=== PATIENT | male | born 1990 | race Caucasian/White ===

== ENCOUNTER 2017-04-29 06:04 | Emergency (ER) | payer MEDICAID, OTHER ==
[~2017-04-29] VITALS: Ht 180.3 cm; Wt 77.3 kg
[~2017-04-29 06:04] MED LIST: PARO-37 PO; QUET200T PO
[2017-04-29] MEDS ORDERED: KETOROLAC TROMETHAMINE 30 MG/ML VIAL IVP ONE (06:30)
[2017-04-29] MEDS ORDERED: AMPICILLIN SODIUM/SULBACTAM NA 3 GM in SODIUM CHLORIDE 0.9% 100 ML IV ONE (06:30)
[2017-04-29] MEDS ORDERED: MORPHINE SULFATE 4 MG/ML SYRINGE IVP ONE (06:30)
[2017-04-29 08:02] VITALS: BP 141/65
== END 2017-04-29 08:14 | disposition home or self-care (01) ==
LOC: EMS 06:09
DX: K04.7 Periapical abscess without sinus (principal); F17.210 Nicotine dependence, cigarettes, uncomplicated
CPT/HCPCS: 96365; 96375; 99284; J0295; J1885; J2270; J7050

== ENCOUNTER 2017-07-19 18:39 | Emergency (ER) | payer OTHER ==
[~2017-07-19] VITALS: Ht 182.9 cm; Wt 80.4 kg
[2017-07-19 18:44] VITALS: BP 122/73
== END 2017-07-19 21:04 | disposition left against medical advice (07) ==
LOC: EMS 18:40
DX: L02.31 Cutaneous abscess of buttock (principal); F17.210 Nicotine dependence, cigarettes, uncomplicated; F12.90 Cannabis use, unspecified, uncomplicated; Z53.21 Procedure and treatment not carried out due to patient leaving prior to being seen by health care provider

== ENCOUNTER 2018-03-30 22:43 | Emergency (ER) | payer OTHER ==
[~2018-03-30] VITALS: Ht 182.9 cm; Wt 79.5 kg
[2018-03-30] MEDS ORDERED: AMOXICILLIN TRIHYDRATE 250 MG CAPSULE PO ONE (23:00)
[2018-03-30] MEDS ORDERED: CIPROFLOXACIN HCL 0.2%/HYDROCORT 1% 10 ML OTIC SUSPENSION AS ONE (23:00)
[2018-03-30] MEDS ORDERED: OxyCODONE HCL/ACETAMINOPHEN 5-325 MG TABLET PO ONE (23:00)
[2018-03-30 23:10] VITALS: BP 131/79
== END 2018-03-30 23:28 | disposition home or self-care (01) ==
LOC: EMS 22:45
DX: H60.92 Unspecified otitis externa, left ear (principal); H66.92 Otitis media, unspecified, left ear; F17.210 Nicotine dependence, cigarettes, uncomplicated; F32.9 Major depressive disorder, single episode, unspecified; F12.10 Cannabis abuse, uncomplicated
CPT/HCPCS: 99284; 99406

== ENCOUNTER 2020-10-12 03:24 | Emergency (ER) | payer OTHER ==
[~2020-10-12] VITALS: Ht 180.3 cm; Wt 86.4 kg
[2020-10-12] MEDS: PERTUSS(ACELL),DIPH,TET VAC/PF 0.5 ML VIAL IM ONE (03:59)
[2020-10-12] MEDS: LIDOCAINE 1%/EPI 1:200,000/PF 30 ML VIAL SQ ONE (04:00)
[2020-10-12] MEDS ORDERED: POVIDONE-IODINE 10% 15 ML SOLUTION UD ONE (04:22)
[2020-10-12] MEDS ORDERED: HYDROGEN PEROXIDE 118 ML SOLUTION ONE (04:23)
[2020-10-12 05:24] VITALS: BP 126/73
[2020-10-12] MEDS: HYDROGEN PEROXIDE 118 ML SOLUTION TP SCH (05:29)
[2020-10-12] MEDS: BACITRACIN 0.9 GM PACKET OINTMENT TP ONE (05:30)
== END 2020-10-12 05:31 | disposition home or self-care (01) ==
LOC: EMS 03:25
DX: S01.81XA Laceration without foreign body of other part of head, initial encounter (principal); F32.9 Major depressive disorder, single episode, unspecified; F17.210 Nicotine dependence, cigarettes, uncomplicated; F12.90 Cannabis use, unspecified, uncomplicated; Z59.0 Homelessness; Y04.2XXA Assault by strike against or bumped into by another person, initial encounter; Y93.89 Activity, other specified; Y92.89 Other specified places as the place of occurrence of the external cause; Y99.8 Other external cause status
CPT/HCPCS: 12013; 70486; 90471; 90715; 99284; J3490

== ENCOUNTER 2020-10-22 17:50 | Emergency (ER) | payer OTHER ==
[~2020-10-22] VITALS: Ht 185.4 cm; Wt 95.5 kg
[2020-10-22 18:03] VITALS: BP 124/66
== END 2020-10-22 18:44 | disposition home or self-care (01) ==
LOC: EMS 17:50
DX: S01.311D Laceration without foreign body of right ear, subsequent encounter (principal); F32.9 Major depressive disorder, single episode, unspecified; F17.210 Nicotine dependence, cigarettes, uncomplicated; F12.90 Cannabis use, unspecified, uncomplicated; X58.XXXD Exposure to other specified factors, subsequent encounter
CPT/HCPCS: Z7502

== ENCOUNTER 2021-03-02 22:54 | Emergency (ER) | payer OTHER ==
[~2021-03-02] VITALS: Ht 182.9 cm; Wt 98.2 kg
[2021-03-02 23:05] VITALS: BP 110/68
== END 2021-03-03 00:32 | disposition left against medical advice (07) ==
LOC: EMS 22:54
DX: L02.416 Cutaneous abscess of left lower limb (principal); Z53.21 Procedure and treatment not carried out due to patient leaving prior to being seen by health care provider

== ENCOUNTER 2021-04-06 12:21 | Emergency (ER) | payer OTHER ==
[~2021-04-06] VITALS: Ht 185.4 cm; Wt 97.7 kg
[2021-04-06 13:32] VITALS: BP 119/70
== END 2021-04-06 13:43 | disposition home or self-care (01) ==
LOC: EMS 12:28
DX: L02.416 Cutaneous abscess of left lower limb (principal); F32.9 Major depressive disorder, single episode, unspecified; F17.210 Nicotine dependence, cigarettes, uncomplicated; F12.90 Cannabis use, unspecified, uncomplicated
CPT/HCPCS: 99283; Z7502

== ENCOUNTER 2021-04-19 14:23 | Emergency (ER) | payer OTHER ==
[~2021-04-19] VITALS: Ht 185.4 cm; Wt 97.3 kg
[2021-04-19 14:28] VITALS: BP 109/64
== END 2021-04-19 15:34 | disposition home or self-care (01) ==
LOC: EMS 14:26
DX: S81.801A Unspecified open wound, right lower leg, initial encounter (principal); F41.9 Anxiety disorder, unspecified; F17.210 Nicotine dependence, cigarettes, uncomplicated; F12.90 Cannabis use, unspecified, uncomplicated; F32.9 Major depressive disorder, single episode, unspecified; X58.XXXA Exposure to other specified factors, initial encounter; Y93.89 Activity, other specified; Y92.89 Other specified places as the place of occurrence of the external cause; Y99.8 Other external cause status
CPT/HCPCS: 99281; 99283

== ENCOUNTER 2022-06-22 00:07 | Emergency (ER) | payer OTHER ==
[~2022-06-22] VITALS: Ht 177.8 cm; Wt 97.7 kg
[2022-06-22 01:50] LABS: COVID AG,FIA SOURCE NASOPHARYNGEAL
[2022-06-22] MEDS ORDERED: AMOXICILLIN TRIHYDRATE 250 MG CAPSULE PO ONE (03:30)
[2022-06-22 04:08] VITALS: BP 122/70
== END 2022-06-22 04:23 | disposition home or self-care (01) ==
LOC: EMS 00:08
DX: U07.1 COVID-19 (principal); J02.0 Streptococcal pharyngitis; F32.9 Major depressive disorder, single episode, unspecified; F17.210 Nicotine dependence, cigarettes, uncomplicated; F12.90 Cannabis use, unspecified, uncomplicated
CPT/HCPCS: 87430; 99283

== ENCOUNTER 2022-07-22 23:35 | Emergency (ER) | payer OTHER ==
[~2022-07-22] VITALS: Ht 177.8 cm; Wt 106.8 kg
[2022-07-22 23:43] VITALS: BP 134/78
[2022-07-23] MEDS ORDERED: ALBU8HFA IH ×2 (00:20→01:03)
== END 2022-07-23 00:35 | disposition home or self-care (01) ==
LOC: EMS 23:36
DX: R06.02 Shortness of breath (principal); F32.A Depression, unspecified; F17.210 Nicotine dependence, cigarettes, uncomplicated; F12.90 Cannabis use, unspecified, uncomplicated; Z86.19 Personal history of other infectious and parasitic diseases; Z98.890 Other specified postprocedural states; Z86.16 Personal history of COVID-19
CPT/HCPCS: 99281; Z7502